=== PATIENT | male | born 1995 | race Caucasian/White ===

== ENCOUNTER 2021-11-04 23:48 | Emergency (ER) | payer BC ==
[~2021-11-04] VITALS: Ht 167.6 cm; Wt 84.0 kg
[2021-11-05] MEDS: HYDROCODONE/ACETAMINOPHEN 5/325MG TABLET PO ONE (00:30)
[2021-11-05 00:41] LABS: BASOPHILS % 0.6 % (0.0-2.0); EOSINOPHILS % 1.5 % (0.0-5.0); HEMATOCRIT. 41.8 % (42.0-52.0); HEMOGLOBIN. 13.9 g/dL (14.0-18.0); LYMPHOCYTES % 22.1 % (20.0-50.0); MEAN CORPUSCULAR HEMOGLOBIN 27.9 pg (28.0-32.0); MEAN PLATELET VOLUME 8.3 fl (7.4-10.4); MONOCYTES % 9.2 % (2.0-8.0); NEUTROPHILS % 66.6 % (40.0-76.0); PLATELET 288 x1000/uL (130-400); RED BLOOD CELL COUNT 4.97 mill/uL (4.7-6.1); RED CELL DISTRIBUTION WIDTH 13.8 % (11.6-14.6)
[2021-11-05 01:01] LABS: CHLORIDE 107 mEq/L (98-107)
[2021-11-05] MEDS ORDERED: IOHEXOL-300 100 ML BOTTLE ONE (02:44)
[2021-11-05] MEDS: CEFTRIAXONE 1 G PREMIX 50 ML IV ONE (03:19)
[2021-11-05 11:30] VITALS: BP 110/60
== END 2021-11-05 12:44 | disposition left against medical advice (07) ==
LOC: ER 23:48 → CANBEDREQ 11-05 12:43 → ER 11-05 12:44
DX: L02.216 Cutaneous abscess of umbilicus (principal); Z20.822 Contact with and (suspected) exposure to COVID-19
CPT/HCPCS: 36415; 74177; 80053; 85025; 87040; 87426; 96365; 99285; J0696; Q9967